=== PATIENT | female | born 1940 | race Caucasian/White ===

== ENCOUNTER 2018-12-31 04:34 | Emergency (ER) | payer MEDICARE, BC ==
--- NOTE | 2018-12-31 05:04 | ED ---
Headache - HPI Summary HPI Summary: A 78 y/o female presents to [facility] with a chief complaint of headache for the past two days. She notes that her headache is mostly left sided. She also reports that yesterday morning she woke up with a bloodshot eye and an ear ache this morning. The patient denies any fever, vomiting, or being photophobic. The patient says that she never gets headaches. The patient takes Meloxicam, Lexapro and Thyroxine. The patient claims that she takes Meloxicam for knee pain from knee replacement surgery. The patient is not on blood thinners. 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 - History Of Current Complaint Chief Complaint: EDHeadache Stated Complaint: HEADACHE PER PT Time Seen by Provider: 12/31/18 04:37 Hx Obtained From: Patient Onset/Duration: Sudden Onset, Started days ago, Still Present Initially Headache Was: Moderate Currently Pain Is: Current Pain Scale(0-10)= - 5, Moderate Timing: Constant, Days Character: Unable To Describe Location of Headache: Other: - more left sided Aggravating Factor: Nothing Allevating Factors: Nothing Associated Signs And Symptoms: Negative - fever, vomiting, photophobic - Allergies/Home Medications Allergies/Adverse Reactions: Allergies Allergy/AdvReac Type Severity Reaction Status Date / Time amoxicillin [From Augmentin] Allergy GI Upset Verified 12/31/18 04:44 ciprofloxacin Allergy GI Upset Verified 12/31/18 04:44 clavulanic acid Allergy GI Upset Verified 12/31/18 04:44 [From Augmentin] codeine Allergy Dizziness Verified 12/31/18 04:45 Sulfa (Sulfonamide Allergy Itching Verified 12/31/18 04:45 Antibiotics) PMH/Surg Hx/FS Hx/Imm Hx Endocrine/Hematology History: Reports: Hx Thyroid Disease - NODE REMOVED, ON MEDS, Hx Anemia Denies: Hx Diabetes Cardiovascular History: Denies: Hx Congestive Heart Failure, Hx Hypertension GI History: Denies: Hx Jaundice History: Denies: Hx Renal Disease Musculoskeletal History: Reports: Hx Arthritis - KNEES, HANDS, FEET Denies: Hx Rheumatoid Arthritis - OSTEO, Hx Osteoporosis - OSTEOPENIA Comment Only: Other Musculoskeletal History - SEES CHIROPRACTER Sensory History: Reports: Hx Cataracts - FREDA, Hx Contacts or Glasses - GLASSES Denies: Hx Hearing Aid Opthamlomology History: Reports: Hx Cataracts - FREDA, Hx Contacts or Glasses - GLASSES Psychiatric History: Reports: Hx Depression - ON MEDS Denies: Other Psychiatric Issues/Disorders - Cancer History Hx Chemotherapy: No Hx Radiation Therapy: No - Surgical History Surgery Procedure, Year, and Place: s/p LEFT thyroidectomy 1973. TONSILLECTOMY 1961. TUBAL LIGATION 1973. RIGHT FOOT SURGERY 2004,2005. CATARACT SURGERY 2010. D&C 1982 Hx Anesthesia Reactions: No Infectious Disease History: No Infectious Disease History: Denies: Traveled Outside the [place] in Last 30 Days - Family History Known Family History: Negative: Blood Disorder - Social History Alcohol Use: None Alcohol Amount: HX ETOH ABUSE Substance Use Type: Reports: None Smoking Status (MU): Former Smoker Amount Used/How Often: 2 PACKS A DAY Have You Smoked in the Last Year: No Review of Systems Negative: Fever Positive: Erythema - right eye. Negative: Photophobia Positive: Ear Ache Negative: Vomiting Positive: Headache All Other Systems Reviewed And Are Negative: Yes Physical Exam - Summary Physical Exam Summary: VITAL SIGNS: Reviewed. GENERAL: Patient is a well-developed and nourished FEMALE who is lying comfortable in the stretcher. Patient is not in any acute respiratory distress. HEAD AND FACE: No signs of trauma. No ecchymosis, hematomas or skull depressions. No sinus tenderness. EYES: PERRLA, EOMI x 2, Right eye mild subconjunctival hemorrhage over temporal side of right eye EARS: Hearing grossly intact. Ear canals and tympanic membranes are within normal limits. MOUTH: Oropharynx within normal limits. NECK: Supple, trachea is midline, no adenopathy, no JVD, no carotid bruit, no c- spine tenderness, neck with full ROM, no meningeal signs. CHEST: Symmetric, no tenderness at palpation LUNGS: Clear to auscultation bilaterally. No wheezing or crackles. CVS: Regular rate and rhythm, S1 and S2 present, no murmurs or gallops appreciated. ABDOMEN: Soft, non-tender. No signs of distention. No rebound no guarding, and no masses palpated. Bowel sounds are normal. EXTREMITIES: FROM in all major joints, no edema, no cyanosis or clubbing. NEURO: Alert and oriented x 3. No acute neurological deficits. Speech is normal and follows commands. SKIN: Dry and warm Triage Information Reviewed: Yes Vital Signs On Initial Exam: Initial Vitals Temp Pulse Resp BP Pulse Ox 98.4 F 65 16 131/71 95 12/31/18 04:35 12/31/18 04:35 12/31/18 04:35 12/31/18 04:35 12/31/18 04:35 Vital Signs Reviewed: Yes - Yari Coma Scale Best Eye Response: 4 - Spontaneous Best Motor Response: 6 - Obeys Commands Best Verbal Response: 5 - Oriented Coma Scale Total: 15 Diagnostics - Vital Signs Vital Signs Temp Pulse Resp BP Pulse Ox 12/31/18 04:35 98.4 F 65 16 131/71 95 - Laboratory Result Diagrams: 12/31/18 05:20 12/31/18 05:20 Lab Statement: Any lab studies that have been ordered have been reviewed, and results considered in the medical decision making process. - CT Brain CT Interpretation Completed By: Radiologist Summary of CT Findings: No acute intracranial findings. ED physician has reviewed this imaging report. Headache Course/Dx - Course Course Of Treatment: A 78 y/o female presents to [facility] with a chief complaint of headache for the past two days. She notes that her headache is mostly left sided. The physical exam revealed Right eye mild subconjunctival hemorrhage over temporal side of right eye, ears are normal and neck is supple, no meningeal signs. In the ED course the patient was given Toradol IV, Reglan IV, Benadryl IV and Sodium Chloride IV. Bloodwork and chemistries obtained and are WNL. Brain CT impression: No acute intracranial findings. The patient will be discharged and follow up with her PCP. The patient is agreeable with this plan. - Diagnoses Provider Diagnoses: Headache, Subconjunctival hemorrhage Discharge - Sign-Out/Discharge Documenting (check all that apply): Patient Departure - DC Patient Received Moderate/Deep Sedation with Procedure: No - Discharge Plan Condition: Stable Disposition: HOME Patient Education Materials: Subconjunctival Hemorrhage (ED), Acute Headache ( DC) Referrals: Bakari Johnson MD [Primary Care Provider] - (2-3 days) Additional Instructions: PLEASE RETURN TO THE ED IMMEDIATELY FOR WORSENING OR CONCERNING SYMPTOMS. - Billing Disposition and Condition Condition: STABLE Disposition: Home - Attestation Statements Document Initiated by Scribe: Yes Documenting Scribe: Davis Johnson Provider For Whom Scribe is Documenting (Include Credential): Linda Cardoza MD Scribe Attestation: I, Davis Johnson, scribed for Linda Cardoza MD on 01/03/19 at 0340. Scribe Documentation Reviewed: Yes Provider Attestation: The documentation as recorded by the scribe, Davis Johnson accurately reflects the service I personally performed and the decisions made by me, Linda Cardoza MD Status of Scribe Document: Viewed
[2018-12-31] MEDS ORDERED: Ketorolac INJ* 30 MG/ML 1 ML VIAL IV PUSH ONE (05:08)
[2018-12-31] MEDS ORDERED: Metoclopramide IV* 5 MG/ML 2 ML VIAL IV SLOW PU ONE (05:09)
[2018-12-31] MEDS ORDERED: diPHENhydraMINE IV* 50 MG/ML 1 ml VIAL (BENADRYL) SLOW PUSH ONE (05:09)
[2018-12-31] MEDS ORDERED: NS 0.9% 1000 ML** 1,000 ML IV ONE (05:09)
[2018-12-31 05:28] VITALS: BP 140/73
[2018-12-31 05:35] LABS: ABS Basophils 0.1 10^3/ul (0-0.2); ABS Eosinophils 0.3 10^3/ul (0-0.6); ABS Lymphocytes 1.9 10^3/ul (1.0-4.8); ABS Monocytes 0.5 10^3/ul (0-0.8); ABS Neutrophils 2.5 10^3/ul (1.5-7.7); Eosinophil % 5.2 %; Hematocrit 36 % (35-47); Hemoglobin 12.5 g/dL (12.0-16.0); Mean Corpuscular HGB Conc 34 g/dL (31-36); Mean Corpuscular Hemoglobin 33 pg (27-31); Mean Corpuscular Volume 95 fL (80-97); Mean Platelet Volume 7.8 fL (7.4-10.4); Nucleated Red Blood Cells % 0.1; Platelet Count 240 10^3/uL (150-450); Red Blood Count 3.83 10^6 /uL (3.70-4.87); Red Cell Distribution Width 13 % (10-15); White Blood Count 5.2 10^3/uL (3.5-10.8)
[2018-12-31 05:51] LABS: Activated Partial Thrombo Time 34.3 seconds (26.0-38.0); INR 0.97 (0.82-1.09)
[2018-12-31 05:53] LABS: Albumin 3.6 g/dL (3.2-5.2); Albumin/Globulin Ratio 1.5 (1-3); BUN/Creatinine Ratio 20.7 (8-20); Calcium 9.1 mg/dL (8.6-10.3); EGFR African American 81.8 (>60); EGFR Non-African American 67.6 (>60); Globulin 2.4 g/dL (2-4); Potassium 4.2 mmol/L (3.5-5.0); Total Bilirubin 0.4 mg/dL (0.2-1.0)
== END 2018-12-31 06:50 | disposition home or self-care (01) ==
LOC: ED 04:34
DX: R51 Headache (principal); H11.31 Conjunctival hemorrhage, right eye; E07.9 Disorder of thyroid, unspecified; F32.9 Major depressive disorder, single episode, unspecified; M17.0 Bilateral primary osteoarthritis of knee; M19.042 Primary osteoarthritis, left hand; M19.041 Primary osteoarthritis, right hand; M19.072 Primary osteoarthritis, left ankle and foot; M19.071 Primary osteoarthritis, right ankle and foot; Z96.659 Presence of unspecified artificial knee joint; Z88.1 Allergy status to other antibiotic agents; Z88.5 Allergy status to narcotic agent; Z88.0 Allergy status to penicillin; Z88.2 Allergy status to sulfonamides; Z87.891 Personal history of nicotine dependence
CPT/HCPCS: 36415; 70450; 80053; 85025; 85610; 85730; 96361; 96374; 96375; 99283; J1200; J1885; J2765

== ENCOUNTER 2021-04-05 06:02 | Observation (INO) ==
[~2021-04-05 06:02] MED LIST: Buffered Lidocaine 1% SYRIN 1 ml INTRADERM ONE; Dexamethasone IV 4 MG/ML VIAL 1 ml VIAL IV SLOW PU ONE; Famotidine IV 10 MG/ML 2 ml VIAL (20 mg) IV ONE; Lactated Ringers 1000 ml BAG 1,000 ML IV SCH
[2021-04-05] MEDS ORDERED: Famotidine IV 10 MG/ML 2 ml VIAL (20 mg) ONE (06:18)
[2021-04-05] MEDS ORDERED: Dexamethasone IV 4 MG/ML VIAL 1 ml VIAL ONE (06:18)
[2021-04-05] MEDS ORDERED: ceFAZolin 2 GM in NS PREMIX 2 GM/100 ML BAG IVPB ONE (06:31)
[2021-04-05] MEDS ORDERED: Bupivacaine 0.25% SDV 30 ML ONE ×2 (06:56→11:40)
[2021-04-05] MEDS ORDERED: Lidocaine 1% w EPI 1:200,000 SDV 30 ML VIAL ONE ×2 (06:56→11:40)
[2021-04-05] MEDS ORDERED: ceFAZolin VIAL VIAL ONE ×2 (06:56→11:40)
[2021-04-05] MEDS ORDERED: Propofol 10 MG/ML 20 ML BTL ONE ×2 (07:11→11:45)
[2021-04-05] MEDS ORDERED: Lidocaine 2% PF 5 ML VIAL ONE ×2 (07:11→11:45)
[2021-04-05] MEDS ORDERED: fentaNYL 100 mcg/2 ml 50 MCG/ML VIAL ONE ×3 (07:11→15:09)
[2021-04-05] MEDS ORDERED: Midazolam 2 mg/2 ml VIAL 1 mg/ml 2 ml VIAL (2 mg) ONE (07:11)
[2021-04-05] MEDS ORDERED: Rocuronium 50 mg VIAL 10 mg/ml 5 ml VIAL (50 mg) ONE ×2 (07:11→11:45)
[2021-04-05] MEDS ORDERED: EPHEDrine (Pressors) 50 MG/ML VIAL ONE (13:28)
[2021-04-05] MEDS ORDERED: Magnesium Hydroxide LIQ 30 ML UDC PO PRN (14:54)
[2021-04-05] MEDS ORDERED: HYDROcodone/ACETAMIN 5/325 mg TAB PO PRN (14:54)
[2021-04-05] MEDS ORDERED: Acetaminophen IV 1 GM/100ML 100 ML IV ONE (14:57)
[2021-04-05] MEDS ORDERED: Ondansetron 4 mg VIAL 2 MG/ML 2 ml VIAL ONE (14:57)
[2021-04-05] MEDS ORDERED: Naloxone 0.4 mg VIAL 0.4 mg/ml 1 ml VIAL IV PRN (14:58)
[2021-04-05] MEDS ORDERED: DiMENhydriNATE IV 50 mg/ml 1 ml VIAL IV PUSH PRN (14:58)
[2021-04-05] MEDS: fentaNYL 100 mcg/2 ml 50 MCG/ML VIAL IV PRN ×4 (15:00→15:34)
[2021-04-05] MEDS: HYDROcodone/ACETAMIN 5/325 mg TAB PO PRN (23:26)
[2021-04-06] MEDS ORDERED: NS 0.9% 1000 ml BAG 1,000 ML IV ONE (08:17)
[2021-04-06] MEDS ORDERED: guaiFENesin 100 mg/5 ml LIQ unit dose cup PO PRN (08:21)
[2021-04-06] MEDS: HYDROcodone/ACETAMIN 5/325 mg TAB PO PRN ×2 (08:29→13:59)
[2021-04-06 16:25] VITALS: BP 91/46
== END 2021-04-06 17:20 | disposition home or self-care (01) ==
LOC: OR 06:02 → SSU 06:02
PROVIDERS: ADMIT Neurological Surgery; ATTEND Neurological Surgery